=== PATIENT | female | born 1990 | race African-American/Black ===

== ENCOUNTER 2017-04-10 06:36 | Day surgery (SDC) | payer OTHER ==
[~2017-04-10] VITALS: Ht 167.6 cm; Wt 66.7 kg
[~2017-04-10 06:36] MED LIST: IBUP200C10 PO; TYLE167L PO; VITAPRTA PO
[2017-04-10] MEDS ORDERED: ceFAZolin SOD 1 GM in D5W MINI-BAG PLUS 50 ML IV ONE (07:00)
[2017-04-10] MEDS ORDERED: LR 1,000 ML IV SCH ×3 (07:00→11:30)
[2017-04-10] MEDS ORDERED: LR 1,000 ML IV ONE (07:00)
[2017-04-10] MEDS ORDERED: BUPIVACAINE/EPIN 0.25% 30 ML VIAL As Ordered ONE (07:05)
[2017-04-10 07:10] LABS: CONTROL LINE UCG INT CTR LINE PRESENT
[2017-04-10] MEDS ORDERED: PROPOFOL 200 MG/20 ML VIAL As Ordered ONE (07:21)
[2017-04-10] MEDS ORDERED: ROCURONIUM BROMIDE 50 MG/5 ML VIAL/SYRINGE As Ordered ONE (07:21)
[2017-04-10] MEDS ORDERED: LIDOCAINE 2% INJ 100 MG/5 ML SDV (FOR ANES.) As Ordered ONE (07:21)
[2017-04-10] MEDS ORDERED: ONDANSETRON 4MG/2ML VIAL (J2405) As Ordered ONE (07:21)
[2017-04-10] MEDS ORDERED: fentaNYL 250 MCG/5 ML INJECTION (J3010) As Ordered ONE (07:21)
[2017-04-10] MEDS ORDERED: dexameTHASONE 4 MG/ML 1ML VIAL (J1100) As Ordered ONE (07:21)
[2017-04-10] MEDS ORDERED: MIDAZOLAM INJ 2 MG/2 ML VIAL (J2250) As Ordered ONE (07:22)
[2017-04-10] MEDS ORDERED: ceFAZolin 1GM INJ (J0690) As Ordered ONE (07:57)
[2017-04-10] MEDS ORDERED: KETOROLAC 60 MG/2 ML VIAL (J1885) As Ordered ONE (08:15)
[2017-04-10] MEDS ORDERED: NEOSTIGMINE 1MG/ML 5 ML SYRINGE (J2710) As Ordered ONE (08:15)
[2017-04-10] MEDS ORDERED: HYDROmorphone HCL 2 MG/ML 1ML VIAL (J1170) As Ordered ONE (08:15)
[2017-04-10] MEDS ORDERED: GLYCOPYRROLATE INJ 0.2 MG/ML 2 ML VIAL As Ordered ONE (08:15)
[2017-04-10] MEDS ORDERED: BUPIVACAINE LIPOSOME/PF 1.3% 20 ML VIAL (13.3MG/ML)(EXPAREL) As Ordered ONE (09:15)
[2017-04-10] MEDS ORDERED: VECURONIUM BROMIDE 10 MG VIAL As Ordered ONE (09:24)
[2017-04-10] MEDS ORDERED: BUPIVACAINE HCL 0.25% 30 ML VIAL As Ordered ONE (09:32)
[2017-04-10] MEDS ORDERED: SUGAMMADEX SODIUM 500 MG/5 ML VIAL (BRIDION) As Ordered ONE (09:38)
[2017-04-10] MEDS ORDERED: MEPERIDINE INJ 25 MG/ML VIAL (J2175) As Ordered ONE (10:52)
[2017-04-10] MEDS ORDERED: ONDANSETRON 4MG/2ML VIAL (J2405) IV PRN ×2 (11:15→11:30)
[2017-04-10] MEDS ORDERED: MEPERIDINE INJ 25 MG/ML VIAL (J2175) IV PRN (11:15)
[2017-04-10] MEDS ORDERED: fentaNYL 100 MCG/2 ML INJECTION (J3010) IV PRN (11:15)
[2017-04-10] MEDS ORDERED: HYDROmorphone HCL 1 MG/ML SYRINGE (J1170) IV PRN (11:15)
[2017-04-10] MEDS ORDERED: MORPHINE 2 MG/ML 1ML SYRINGE IV PRN (11:30)
[2017-04-10] MEDS ORDERED: NORCO, ANEXSIA 5/325MG TABLET (HYDROcodone/ACETAMINOPHEN) PO PRN (11:30)
[2017-04-10 12:45] VITALS: BP 120/71
--- NOTE | 2017-05-08 05:19 | RO ---
DATE OF PROCEDURE: 04/10/2017 PREOPERATIVE DIAGNOSIS: Recurrent incisional hernia. POSTOPERATIVE DIAGNOSIS: Recurrent incisional hernia. PROCEDURE: Laparoscopic incisional hernia repair with removal of foreign body (mesh). SURGEON: Sukhi Vincent MD ASSOC[employer]: ANESTHESIA: General endotracheal anesthesia ESTIMATED BLOOD LOSS: Minimal. FLUIDS: Crystalloid. DESCRIPTION OF PROCEDURE: The patient was brought to the operating room and was given general anesthesia. After adequate anesthesia was established, the patient was prepped and draped in the usual sterile fashion. Next, a right lateral abdominal wall incision was made with skin knife and a Veress needle was inserted into the abdominal cavity and insufflated to 15 mm pressure. The abdomen was insufflated and a dilating 5 mm trocar was placed in the right lateral abdomen and a second was placed as well. At this time, there were multiple adhesions along the anterior abdominal wall, which were taken down with a Harmonic scalpel. Some of this needed be taken down with sharp dissection as well. Eventually, adequately taken down this tissue superior to the umbilicus, as well as periumbilical, as well as infraumbilical was performed with both the Harmonic as well as sharp dissection. Once this was adequately taking down, there was obviously mesh that could be palpated at the umbilicus. It was folded upon itself. It was irregular shaped and was adjacent to several other small fascial defects. Thus, at this point, I felt it was reasonable to take down a good portion of this for body/mesh and this was taken down with the Harmonic scalpel off the fascia, as well as sharp dissection. Eventually, once the majority of this was taken off, it was grasped with a clamp A 12 mm trocar was placed at the supraumbilical site through one of the fascial defects holes and was grasped, and the incision at the umbilicus in the periumbilical area was made at this time. I felt that there was quite a diastasis at the umbilicus and the periumbilical area and thus, the periumbilical incision was made with skin knife. Electrocautery was used cut through dermis, underlying subcutaneous tissue down to the fascia. The hernia sites were opened and given the diastasis , eventually after opening this widely and dissecting off the subcutaneous tissue off the fascia itself, the fascia, which was firm and good healthy fascia laterally, was able to be brought together with some [id number] #0 Ethibond sutures. This was repeated multiple times along the incision to even superior superiorly. Prior to tying off all these sutures, a 15 cm round ventra-lite mesh was placed into the abdominal cavity. The midline incision was reapproximated quite nicely at this time and the Ventralight balloon was inflated, brought up anteriorly and then laparoscopically. This was tacked with SecureStrap Additional 5 mm trocars were placed under direct visualization on the left side as well. Once this was placed appropriately and looked as though it was good superiorly, inferiorly and laterally, the abdomen was desufflated under direct visualization revealing a clean, dry operative field. All trocars removed under direct visualization and midline then was closed with a running #4-0 Vicryl subcuticular. Steri-Strips and a dry sterile dressing was applied. The patient was awakened from anesthesia, extubated and brought to the recovery room awake, alert and hemodynamically stable. SORAYA
== END 2017-04-10 13:00 | disposition home or self-care (01) ==
LOC: M SDC 06:36
PROVIDERS: ATTEND Surgery
DX: K43.2 Incisional hernia without obstruction or gangrene (principal); K44.9 Diaphragmatic hernia without obstruction or gangrene; N73.6 Female pelvic peritoneal adhesions (postinfective); F17.210 Nicotine dependence, cigarettes, uncomplicated
CPT/HCPCS: 49656; 84703; 88302; C1781; J0690; J1100; J1170; J1885; J2175; J2250; J2405; J3010